=== PATIENT | male | born 1985 | race Two or more races ===

== ENCOUNTER → 2022-05-30 13:27 | Outpatient (CLI) | payer OTHER | END | disposition home or self-care (01) | LOC: LAB 05-27 14:33 | PROVIDERS: ATTEND Urology | DX: N41.0 Acute prostatitis (principal) ==

== ENCOUNTER 2022-08-13 13:28 | Outpatient (CLI) | payer OTHER | END 2022-08-13 13:58 | disposition home or self-care (01) | LOC: LAB 13:28 | DX: N41.0 Acute prostatitis (principal) ==

== ENCOUNTER 2022-08-22 11:39 | Outpatient (CLI) | payer OTHER | END 2022-08-22 11:55 | disposition home or self-care (01) | LOC: LAB 11:39 → EDBD 11:39 → LAB 11:55 | PROVIDERS: ATTEND Urology | DX: N39.0 Urinary tract infection, site not specified (principal); N41.1 Chronic prostatitis; B95.7 Other staphylococcus as the cause of diseases classified elsewhere ==